=== PATIENT | female | born 1980 | race African-American/Black ===

== ENCOUNTER 2021-02-08 12:31 | Inpatient (IN) | payer OTHER ==
[~2021-02-08] VITALS: Ht 167.6 cm; Wt 55.9 kg
--- NOTE | 2021-02-08 12:40 | NUR ---
Patient to room via EMS stretcher. Transfers self from stretcher to bed. Patient is alert and oriented x4. Rates pain in mid upper abd 4/10. NG to right nare, 54cm noted at nare on NG tube. Connect NG to LIS, small amount of greenish/brown discharge noted in tubing. Bowel sounds active in all four quads. IV to right AC with LR via gravity. [place] patient to room. Dr. Vitale notified that patient has arrived.
[2021-02-08] MEDS ORDERED: IBU800 M1 PO (13:06)
[2021-02-08] MEDS ORDERED: ONE-A-DAY ESSE1 EACH PO (13:07)
[2021-02-08 13:11] VITALS: BP 103/70; PULSE 65; TEMP 97.7
--- NOTE | 2021-02-08 14:55 | NUR ---
Lying in bed with eyes closed. Opens eyes when enter room. Patient says that she is doing okay at this time. NG to LIS with greenish/brown discharge in tubing. Patient denies needs at this time.
[2021-02-08 15:28] VITALS: BP 107/65; PULSE 73; TEMP 98.5
--- NOTE | 2021-02-08 18:10 | NUR ---
Attempt IV restart by this nurse, Leni, and Pravin data warehouse developer. All unsuccessful. Pravin calls Catrachita from ER to come attempt IV restart. Catrachita able to get 22 gauge in left inner wrist after two attempts. Patient tolerates well.
[2021-02-08 20:18] VITALS: BP 109/56; PULSE 61; TEMP 97.7
[2021-02-09 00:14] VITALS: BP 105/58; PULSE 74; TEMP 98.1
[2021-02-09 04:35] VITALS: BP 112/66; PULSE 81; TEMP 98.4
--- NOTE | 2021-02-09 04:50 | NUR ---
ADMINISTERED 6 MG IMITREX TO PATIENT'S LEFT UPPER LEG, NOTIFIED PATIENT'S NURSE AND BOTH CHARGE NURSES OF INCIDENT, PATIENT'S MD ALSO NOTIFIED
--- NOTE | 2021-02-09 05:00 | NUR ---
Checked in on patient. She states she is doing okay. VSS. NG tube to low intermittent suction. No additional needs at this time.
[2021-02-09 06:13] LABS: BASO % 0.3 % (0.0-2.0); EOS # 0.2 (0.0-0.7); GRAN # 7.4 (1.4-6.5); HEMOGLOBIN 11.9 g/dl (12.5-16.0); LYMPH # 1.3 (1.2-3.4); MEAN CELL VOLUME 84 fl (80.0-100.0); MEAN CORPUSCULAR HEMOGLOBIN 26 pg (27.0-31.0); MEAN CORPUSCULAR HGB CONC 31 g/dl (33.0-37.0); MEAN PLATELET VOLUME 9.1 fl (7.4-10.4); MONO # 0.5 (0.1-0.6); MONO % 5.4 % (1.7-9.3); PLATELET COUNT 414 K/mm3 (130-400); RED BLOOD COUNT 4.51 M/mm3 (4.10-5.30); REDCELL DISTRIBUTION WIDTH-CV 12.6 % (11.5-14.5)
[2021-02-09 06:21] LABS: CALCIUM 8.5 mg/dL (8.4-10.2); CREATININE, serum 0.71 (0.52-1.25); POTASSIUM 3.8 mmol/L (3.4-5.0)
--- NOTE | 2021-02-09 06:45 | NUR ---
Lying in bed with eyes closed. Opens eyes when enter room. Alert and oriented x4. Denies pain or nausea. Bowel sounds active in all quadrants. Patient says that she has been passing gas. NG to right nare to LIS. Patient is hopeful to go home today. Discuss that she will have xray this a.m. and then we may look at starting her on clear liquids based on results to see how she does. Patient verbalizes understanding and denies additional needs at this time.
--- NOTE | 2021-02-09 07:22 | NUR ---
Noted on a.m. labs glucose 66. Contact Dr Hairston and orders received. Will clamp NG at this time and change IV fluids. Contact xray to make sure they see order for xray, they will come perform xray.
[2021-02-09 07:27] VITALS: BP 95/63; PULSE 89; TEMP 98.6
--- NOTE | 2021-02-09 09:04 | NUR ---
Do not see xray results in system. Dr. Vitale here to see patient. Call radiology and they have not done xray at this time but will come up to perform xray now.
--- NOTE | 2021-02-09 09:17 | NUR ---
KRISTIAN met with the patient to discuss discharge plan. The patient lives in [place] with her , Tylor (ph#[phone]), and four children. She reports independence with ADLs and does not have any DME. The patient receives primary care at [facility]. She states that she does not have a specific provider there. She also receives her medications from [facility] and reports no difficulties obtaining her meds. The patient does not have a DPOA-HC in EMR, but she states that she does have one completed and that it designates her . The patient plans to return home with her family upon discharge. No additional needs at this time.
--- NOTE | 2021-02-09 09:38 | NUR ---
Dr. Vitale in to see the patient and he discontinues NG tube. Discuss with patient how to order full liquid meal. Provide Miralax as prescribed. IV fluids dc'd as ordered. Explain that we will update Dr. Vitale this afternoon on how she is doing and potential discharge this afternoon. Patient in agreeance. Denies additional needs.
--- NOTE | 2021-02-09 11:07 | NUR ---
Initial visit; Patient thanked [employer] for looking in on her and offering encouragement, God's blessings and To keep her in [employer]'s prayers.
[2021-02-09 11:53] VITALS: BP 108/56; PULSE 60; TEMP 97.6
--- NOTE | 2021-02-09 11:56 | NUR ---
Lying in bed watching TV. Denies pain or nausea. Patient says that she has not had a BM yet but is passing gas. Will order lunch at this time. Denies additional needs.
--- NOTE | 2021-02-09 13:35 | NUR ---
Patient up in room. Was able to have a bowel movement. Denies pain or nausea. Says that she can feel her bowels moving the stool. Tolerating full liquids without difficulty. Feels like she is ready to go home. Explain that I will provide update to Dr. Vitale and we will let her know what he says. Contact Dr. Vitale. Update provided. Orders received that patient may discharge. Will update patient at this time.
--- NOTE | 2021-02-09 13:50 | NUR ---
Review all discharge instructions with the patient. Verbalizes understanding to all, denies questions. Signs all discharge documents. Discharge packet provided to the patient. Patient will call when her ride is here to pick her up. Denies additional needs at this time.
--- NOTE | 2021-02-09 14:25 | NUR ---
Patient calls and her daughter is here to take her home. Patient assisted out to POV with all belongings by TERRANCE Son.
== END 2021-02-09 14:25 | disposition home or self-care (01) | DRG 390 ==
LOC: SURG 12:31
PROVIDERS: ADMIT Surgery
DX: K56.609 Unspecified intestinal obstruction, unspecified as to partial versus complete obstruction (principal); Z90.710 Acquired absence of both cervix and uterus
CPT/HCPCS: J7030; J7042